=== PATIENT | male | born 1950 | race Two or more races ===

== ENCOUNTER 2022-10-09 01:11 | Emergency (ER) | payer OTHER ==
[~2022-10-09] VITALS: Ht 175.3 cm; Wt 72.6 kg
[2022-10-09] MEDS ORDERED: ATORVASTATIN CA20 MG PO (01:21)
== END 2022-10-09 04:33 | disposition home or self-care (01) ==
LOC: ER 01:11
DX: I10 Essential (primary) hypertension (principal)

== ENCOUNTER 2022-12-18 06:00 | Day surgery (SDC) | payer OTHER ==
[~2022-12-18] VITALS: Ht 170.2 cm; Wt 71.7 kg
[~2022-12-18 06:00] MED LIST: ATORVASTATIN CA20 MG PO
== END 2022-12-18 15:00 | disposition home or self-care (01) ==
LOC: CIR.AMB 06:00
PROVIDERS: ATTEND Specialist
DX: K40.90 Unilateral inguinal hernia, without obstruction or gangrene, not specified as recurrent (principal); Z20.822 Contact with and (suspected) exposure to COVID-19
CPT/HCPCS: 49505; C1781